=== PATIENT | male | born 1960 | race Two or more races ===

== ENCOUNTER 2021-01-05 20:06 | Inpatient (IN) | payer MEDICARE, OTHER ==
[~2021-01-05] VITALS: Ht 172.7 cm; Wt 69.9 kg
[2021-01-05] MEDS ORDERED: IV NORMAL SALINE 1000 ML BAG IV ONE (20:30)
[2021-01-05] MEDS ORDERED: LOSA50TA39 PO (20:33)
[2021-01-05] MEDS ORDERED: ACET-2154 PO (20:33)
[2021-01-05] MEDS ORDERED: DOCU100C36 PO (20:33)
[2021-01-05] MEDS ORDERED: ASPI81TA31 PO (20:33)
[2021-01-05] MEDS ORDERED: MAG355OR18 PO (20:33)
[2021-01-05] MEDS ORDERED: ASCO500P18 PO (20:33)
[2021-01-05] MEDS ORDERED: ATOR80TA PO (20:33)
[2021-01-05] MEDS ORDERED: MAGN400O6 PO (20:33)
[2021-01-05] MEDS ORDERED: RISP0.5T5 PO (20:33)
[2021-01-05] MEDS ORDERED: LATA7.5D OP (20:33)
[2021-01-05] MEDS ORDERED: BENZ1TAB7 PO (20:33)
[2021-01-05] MEDS ORDERED: vitamin d3 PO (20:33)
[2021-01-05] MEDS ORDERED: MELA5TAB PO (20:33)
[2021-01-05 20:46] LABS: BASOPHILS # (AUTO) 0.1 K/uL (0.0-8.0); EOSINOPHILS # (AUTO) 0.8 K/uL (0.0-0.7); EOSINOPHILS % (AUTO) 9.1 % (0.0-7.0); HEMATOCRIT 34.6 % (36.7-47.1); HEMOGLOBIN 11.9 g/dL (12.5-16.3); LYMPHOCYTES # (AUTO) 1.8 K/uL (20.0-40.0); LYMPHOCYTES % (AUTO) 21.8 % (20.5-51.5); MEAN CORPUSCULAR HEMOGLOBIN 31.3 uug (23.8-33.4); MEAN CORPUSCULAR HGB CONC 34 g/dL (32.5-36.3); MEAN CORPUSCULAR VOLUME 91.4 fL (73.0-96.2); MONOCYTES # (AUTO) 0.9 K/uL (2.0-10.0); MONOCYTES % (AUTO) 10.5 % (0.0-11.0); NEUTROPHILS # (AUTO) 4.8 K/uL (1.8-8.9); NEUTROPHILS % (AUTO) 57.6 % (38.5-71.5); PLATELET COUNT (AUTO) 148 K/uL (152-348); RED BLOOD CELL COUNT(AUTO) 3.79 MIL/uL (4.06-5.63); WHITE BLOOD COUNT (AUTO) 8.3 K/uL (3.6-10.2)
[2021-01-05 20:47] LABS: CREATININE 0.9 mg/dL (0.6-1.3); POTASSIUM 4.8 mmol/L (3.5-5.1)
[2021-01-05 20:53] LABS: BILIRUBIN,DIRECT 0.1 mg/dL (0.0-0.2); BILIRUBIN,TOTAL 0.4 mg/dL (0.2-1.0); TOTAL PROTEIN, SERUM 5.8 g/dL (6.4-8.2)
[2021-01-05] MEDS ORDERED: ACETAMINOPHEN 325 MG TABLET PO PRN (21:00)
[2021-01-05] MEDS ORDERED: MAGNESIUM HYDROXIDE 30 ML LIQUID UDC PO PRN ×2 (21:00)
[2021-01-05] MEDS ORDERED: Z GUARD REMEDY PASTE 57 GM TUBE TOP PRN (21:00)
[2021-01-05] MEDS ORDERED: ONDANSETRON 4 MG/2 ML VIAL IV PRN (21:00)
--- NOTE | 2021-01-05 21:04 | NUR ---
pt to CT
--- NOTE | 2021-01-05 22:15 | NUR ---
RECEIVED PATIENT VIA GURNEY FROM ER. PATIENT IS ALERT TO SELF ONLY, CONFUSED, BUT ABLE TO FOLLOW SIMPLE DIRECTIONS. VSS. NO S/S OF PAIN OR DISCOMFORT. PATIENT HUNGRY ON ARRIVAL. GIVEN TUNA SANDWICH, ATE 100%. H/L INTACT AND PATENT. BED ALARM ON. CALL LIGHT IN REACH. ALL NEEDS ATTENDED. WILL CONTINUE TO MONITOR.
[2021-01-05] MEDS: risperiDONE 0.5 MG TABLET PO SCH (22:40)
[2021-01-05] MEDS: IV NS 1000 ML 1,000 ML IV PRN (22:41)
[2021-01-06 00:04] VITALS: BP 148/69
[2021-01-06 04:00] VITALS: BP 132/78
[2021-01-06 06:29] LABS: BASOPHILS # (AUTO) 0.1 K/uL (0.0-8.0); BASOPHILS % (AUTO) 0.8 % (0.0-2.0); EOSINOPHILS # (AUTO) 0.6 K/uL (0.0-0.7); EOSINOPHILS % (AUTO) 8.5 % (0.0-7.0); HEMATOCRIT 33.3 % (36.7-47.1); HEMOGLOBIN 11.6 g/dL (12.5-16.3); LYMPHOCYTES # (AUTO) 1.6 K/uL (20.0-40.0); LYMPHOCYTES % (AUTO) 23.3 % (20.5-51.5); MEAN CORPUSCULAR HGB CONC 35 g/dL (32.5-36.3); MONOCYTES # (AUTO) 0.7 K/uL (2.0-10.0); MONOCYTES % (AUTO) 9.9 % (0.0-11.0); NEUTROPHILS % (AUTO) 57.5 % (38.5-71.5); PLATELET COUNT (AUTO) 164 K/uL (152-348); RED BLOOD CELL COUNT(AUTO) 3.62 MIL/uL (4.06-5.63); WHITE BLOOD COUNT (AUTO) 6.9 K/uL (3.6-10.2)
[2021-01-06 06:52] LABS: CREATININE 0.9 mg/dL (0.6-1.3); MAGNESIUM 2.1 mg/dL (1.8-2.4); PHOSPHOROUS 2.9 mg/dL (2.5-4.9)
[2021-01-06] MEDS: ASCORBIC ACID 500 MG TABLET PO SCH ×2 (08:17→16:42)
[2021-01-06] MEDS: ASPIRIN 81 MG TAB.CHEW PO SCH (08:17)
[2021-01-06] MEDS: DOCUSATE SODIUM 100 MG CAPSULE PO SCH (08:17)
[2021-01-06] MEDS: LOSARTAN POTASSIUM 50 MG TABLET PO SCH (08:18)
[2021-01-06] MEDS: BENZTROPINE MESYLATE 1 MG TABLET PO SCH ×3 (08:18→16:42)
[2021-01-06 11:30] VITALS: BP 105/48
--- NOTE | 2021-01-06 13:41 | NUR ---
WOUND CARE CONSULT: PT SEEN FOR LOWER LEGS SKIN CONDITION, PRESENT ON ADMISSION. PT STATES HAS ECZEMA. DEFER TO PMD FOR SKIN CONDITION. CURRENT GLEN SCORE IS 18. WILL SEE PRN.
[2021-01-06 16:00] VITALS: BP 92/55
--- NOTE | 2021-01-06 19:45 | NUR ---
RECEIVED PT IN BED, ASLEEP BUT EASILY AROUSABLE, NO S/S OF RESPIRATORY DISTRESS, NO PAIN OR DISCOMFORT NOTED. IVF INFUSING WELL. REPOSITIONED COMFORTABLY IN BED, SAFETY MEASURES INITIATED, WILL CONTINUE TO MONITOR.
[2021-01-06 20:21] VITALS: BP 119/73
[2021-01-06] MEDS: MELATONIN 3 MG TABLET PO SCH (21:00)
[2021-01-06] MEDS: ATORVASTATIN 40 MG TABLET PO SCH (21:00)
[2021-01-06] MEDS: risperiDONE 0.5 MG TABLET PO SCH (21:00)
[2021-01-06] MEDS: LATANOPROST OPHT DROP 2.5 ML BOTTLE EACHEYE SCH (21:00)
--- NOTE | 2021-01-06 22:00 | NUR ---
ASSISTED PT TO TAKE MEDICATIONS. MULTIPLE ATTEMPTS DONE. PT REFUSED.
[2021-01-06] MEDS: IV NS 1000 ML 1,000 ML IV PRN (22:03)
[2021-01-07] MEDS ORDERED: MELATONIN 3 MG TABLET ONE (02:28)
[2021-01-07] MEDS: MELATONIN 3 MG TABLET PO SCH (02:33)
[2021-01-07 04:00] VITALS: BP 132/74
--- NOTE | 2021-01-07 06:06 | NUR ---
PT IN BED, SLEEPING BUT EASILY AROUSABLE TO LIGHT TOUCH. SLEPT INTERMITTENTLY THROUGH THE NIGHT. SAFETY MEASURES MAINTAINED AT ALL TIMES. NO S/S OF RESPIRATORY DISTRESS, DENIES ANY PAIN OR DISCOMFORT. ALL NEEDS ATTENDED.
[2021-01-07 06:36] LABS: BASOPHILS # (AUTO) 0.1 K/uL (0.0-8.0); BASOPHILS % (AUTO) 0.9 % (0.0-2.0); EOSINOPHILS # (AUTO) 0.6 K/uL (0.0-0.7); EOSINOPHILS % (AUTO) 8.7 % (0.0-7.0); HEMATOCRIT 32.2 % (36.7-47.1); HEMOGLOBIN 11.2 g/dL (12.5-16.3); LYMPHOCYTES # (AUTO) 1.6 K/uL (20.0-40.0); LYMPHOCYTES % (AUTO) 24.4 % (20.5-51.5); MEAN CORPUSCULAR HGB CONC 35 g/dL (32.5-36.3); MEAN CORPUSCULAR VOLUME 91.8 fL (73.0-96.2); MONOCYTES # (AUTO) 0.7 K/uL (2.0-10.0); MONOCYTES % (AUTO) 10.7 % (0.0-11.0); NEUTROPHILS # (AUTO) 3.6 K/uL (1.8-8.9); NEUTROPHILS % (AUTO) 55.3 % (38.5-71.5); PLATELET COUNT (AUTO) 170 K/uL (152-348); RED BLOOD CELL COUNT(AUTO) 3.51 MIL/uL (4.06-5.63); WHITE BLOOD COUNT (AUTO) 6.6 K/uL (3.6-10.2)
[2021-01-07 06:43] LABS: CREATININE 0.9 mg/dL (0.6-1.3); MAGNESIUM 1.9 mg/dL (1.8-2.4); PHOSPHOROUS 3.1 mg/dL (2.5-4.9); POTASSIUM 4.2 mmol/L (3.5-5.1)
--- NOTE | 2021-01-07 07:30 | NUR ---
Received patient in bed. Patient was initially difficult to arouse. Patient got combative and tried to hit staff when trying to wake him up. Safety measures are in place with bed alarm activated. Will continue to monitor.
[2021-01-07 08:19] VITALS: BP 114/47
[2021-01-07] MEDS: DOCUSATE SODIUM 100 MG CAPSULE PO SCH (09:34)
[2021-01-07] MEDS: ASPIRIN 81 MG TAB.CHEW PO SCH (09:35)
[2021-01-07] MEDS: ASCORBIC ACID 500 MG TABLET PO SCH ×2 (09:35→17:47)
[2021-01-07] MEDS: BENZTROPINE MESYLATE 1 MG TABLET PO SCH ×3 (09:35→17:47)
[2021-01-07] MEDS: LOSARTAN POTASSIUM 50 MG TABLET PO SCH (09:36)
--- NOTE | 2021-01-07 10:00 | NUR ---
Patient evetually woke up and eat breakfast and took medications. Will continue to monitor.
[2021-01-07 11:05] VITALS: BP 146/80
[2021-01-07 15:42] VITALS: BP 135/60
--- NOTE | 2021-01-07 19:18 | NUR ---
Patient left resting in chair. No sign of distress noted. Patient was noted excessively picking his nose. Patient ate all meals provided and took all medications as ordered. Safety precautions are in place. Will endorse to the oncoming nurse.
--- NOTE | 2021-01-07 19:35 | NUR ---
Received pt in bed, awake and verbally responsive. No s/s of distress. No pain or discomfort noted. Safety measures initiated, call light within reach, will continue to monitor.
--- NOTE | 2021-01-07 19:50 | NUR ---
Pt left arm swollen due to IV infiltration. Removed IV access. Applied ice pack to affected arm and elevated with pillows. Will continue to monitor.
[2021-01-07 20:07] VITALS: BP 128/69
[2021-01-07] MEDS: ATORVASTATIN 40 MG TABLET PO SCH (20:39)
[2021-01-07] MEDS: risperiDONE 0.5 MG TABLET PO SCH (20:39)
[2021-01-07] MEDS: LATANOPROST OPHT DROP 2.5 ML BOTTLE EACHEYE SCH (20:39)
[2021-01-08 05:36] VITALS: BP 116/61
--- NOTE | 2021-01-08 06:11 | NUR ---
Pt slept through the night, no s/s of distress, denies any pain or discomfort. Tolerated medications well. On DVT pumps. Safety measures maintained at all times, call light within reach, all needs attended.
[2021-01-08] MEDS: BENZTROPINE MESYLATE 1 MG TABLET PO SCH ×2 (08:01→12:40)
[2021-01-08] MEDS: ASPIRIN 81 MG TAB.CHEW PO SCH (08:01)
[2021-01-08] MEDS: ASCORBIC ACID 500 MG TABLET PO SCH (08:01)
[2021-01-08] MEDS: LOSARTAN POTASSIUM 50 MG TABLET PO SCH (08:01)
[2021-01-08] MEDS: DOCUSATE SODIUM 100 MG CAPSULE PO SCH (08:01)
[2021-01-08 08:03] VITALS: BP 130/60
[2021-01-08 16:07] VITALS: BP 146/53
--- NOTE | 2021-01-08 17:00 | NUR ---
dc orders received noted and carried out,dc instruction and rn report given to the correction.pt left the facility via ambulances in stable condition
== END 2021-01-08 16:45 | DRG 682 ==
LOC: ER 20:08 → MEDSURG3 21:43
PROVIDERS: ADMIT Internal Medicine; ATTEND Internal Medicine
DX: N17.0 Acute kidney failure with tubular necrosis (principal); E43 Unspecified severe protein-calorie malnutrition; E88.09 Other disorders of plasma-protein metabolism, not elsewhere classified; Z86.16 Personal history of COVID-19; Z87.01 Personal history of pneumonia (recurrent); E78.5 Hyperlipidemia, unspecified; Z68.23 Body mass index [BMI] 23.0-23.9, adult; I25.10 Atherosclerotic heart disease of native coronary artery without angina pectoris; G20 Parkinson's disease; Z88.0 Allergy status to penicillin; I10 Essential (primary) hypertension; E11.9 Type 2 diabetes mellitus without complications; R62.7 Adult failure to thrive; Z20.822 Contact with and (suspected) exposure to COVID-19
CPT/HCPCS: 36415; 70030-TC; 71045; 71250; 83605; 83690; 83735; 84100; 85025; 85730; 93005; A4663; G0378; J7030; U0003